=== PATIENT | female | born 1995 | race Caucasian/White ===

== ENCOUNTER 2021-12-01 03:27 | Emergency (ER) | payer SELFPAY ==
[2021-12-01 05:51] LABS: HEMOGLOBIN 14.3 gm/dl (12.3-15.3); RED BLOOD COUNT 5.12 M/UL (4.00-5.10); WHITE BLOOD COUNT 9.1 K/UL (4.5-11.0)
[2021-12-01 06:06] LABS: BUN/CREATININE RATIO 16 (0-10)
[2021-12-01] MEDS ORDERED: FLEXERIL 5 MG PO (08:01)
[2021-12-01] MEDS ORDERED: MEDROL DOSEPAK 24 MG PO (08:01)
== END 2021-12-01 08:17 | disposition home or self-care (01) ==
LOC: ER1 03:27
PROVIDERS: Physician Assistant
DX: U07.1 COVID-19 (principal); M54.2 Cervicalgia; Z90.49 Acquired absence of other specified parts of digestive tract; Z88.1 Allergy status to other antibiotic agents; F17.290 Nicotine dependence, other tobacco product, uncomplicated; X50.9XXA Other and unspecified overexertion or strenuous movements or postures, initial encounter
CPT/HCPCS: 0240U; 71045; 72125; 80053; 81001; 83605; 84703; 85025; 85652; 86140; 87040; 87086; 93005; 96374; 96375; 99284; J1885; J2360

== ENCOUNTER 2022-04-18 20:27 | Emergency (ER) | payer OTHER ==
[~2022-04-18 20:27] MED LIST: FLEXERIL 5 MG PO; MEDROL DOSEPAK 24 MG PO
[2022-04-18 20:51] LABS: HEMOGLOBIN 13.9 gm/dl (12.3-15.3); RED BLOOD COUNT 4.77 M/UL (4.00-5.10); WHITE BLOOD COUNT 9.9 K/UL (4.5-11.0)
[2022-04-18 21:20] LABS: BUN/CREATININE RATIO 19 (0-10)
== END 2022-04-18 22:37 | disposition left against medical advice (07) ==
LOC: ER1 20:27
PROVIDERS: Emergency Medicine
DX: R10.9 Unspecified abdominal pain (principal); R11.0 Nausea; R19.7 Diarrhea, unspecified; F17.290 Nicotine dependence, other tobacco product, uncomplicated; Z90.49 Acquired absence of other specified parts of digestive tract
CPT/HCPCS: 80053; 81001; 83690; 84703; 85025; 99283

== ENCOUNTER → 2022-06-13 | Outpatient (CLI) | payer OTHER | LOC: KOH-I 11:36 | DX: M54.2 Cervicalgia (principal) | CPT/HCPCS: 72040 ==